=== PATIENT | female | born 1960 | race Caucasian/White ===

== ENCOUNTER 2017-07-12 00:23 | Emergency (ER) | payer OTHER ==
--- NOTE | 2017-07-12 01:40 | PDOC ---
History of Present Illness - General Stated Complaint: ANKLE PAIN Time Seen by Provider: 07/12/17 01:09 - History of Present Illness Initial Comments: 07/12/17 01:40 56 yo F with h/o seizure disorder and arthritis who presents with R ankle pain. Patient reports increased sharp lateral right ankle pain for the past month. Pain worse with ambulation. No sensory changes, or acute injuries/trauma. Pain worse in the morning and improves throughout the day. Also endorses BL knee, hand, and anterior howard pain and swelling. Denies N/V, F/C, CP, SOB, abdominal complaints, urinary complaints, rash, weakness, lightheadedness, LOC. Denies any acute trauma. Reports R ankle injury 1 year ago with sprained ankle. Denies OTC analgesia. Past History - Past Medical History Allergies/Adverse Reactions: Allergies Allergy/AdvReac Type Severity Reaction Status Date / Time No Known Allergies Allergy Verified 07/12/17 02:02 Home Medications: Ambulatory Orders Ibuprofen [Motrin] 600 mg PO TID #30 tablet 07/12/17 Review of Systems - Review of Systems Comments:: 07/12/17 01:40 GENERAL/CONSTITUTIONAL: No fever or chills. No weakness. HEAD, EYES, EARS, NOSE AND THROAT: No change in vision. No ear pain or discharge. No sore throat.- CARDIOVASCULAR: No chest pain or shortness of breath RESPIRATORY: No cough, wheezing, or hemoptysis. GASTROINTESTINAL: No nausea, vomiting, diarrhea or constipation. GENITOURINARY: No dysuria, frequency, or change in urination. MUSCULOSKELETAL: + Joint swelling and pain. No neck or back pain. SKIN: No rash NEUROLOGIC: No headache, vertigo, loss of consciousness, or change in strength/ sensation. ENDOCRINE: No increased thirst. No abnormal weight change HEMATOLOGIC/LYMPHATIC: No anemia, easy bleeding, or history of blood clots. ALLERGIC/IMMUNOLOGIC: No hives or skin allergy. *Physical Exam - Physical Exam Comments: 07/12/17 01:40 GENERAL: Awake, alert, and fully oriented, in no acute distress HEAD: No signs of trauma, normocephalic, atraumatic EYES: PERRLA, EOMI, sclera anicteric, conjunctiva clear ENT: Hearing grossly normal, nares patent, oropharynx clear without exudates. Moist mucosa NECK: Normal ROM, no JVD, or masses LUNGS: No distress, speaks full sentences, clear to auscultation bilaterally HEART: Regular rate and rhythm, normal S1 and S2, no murmurs, rubs or gallops, peripheral pulses normal and equal bilaterally. EXTREMITIES : Normal inspection, Normal range of motion, no edema. No clubbing or cyanosis. R ankle: Pain with palpation at posterior edge tip of R lateral malleolus. + swelling at R lateral malleolus. Normal active and passive ROM of foot. Negative forefoot ttp. SKIN: Warm, Dry, normal turgor, no rashes or lesions noted. Medical Decision Making - Medical Decision Making 07/12/17 01:49 56 yo F with h/o seizure disorder and arthritis who presents with increased sharp lateral right ankle pain for the past month. Aggravated with ambulation and worse worse in the morning with mild improvement/resolution throughout the day. No sensory changes, or acute injuries/trauma. Pain . + Arthralgias. Denies N/V, F/C, CP, SOB, abdominal complaints, urinary complaints, rash, weakness, lightheadedness, LOC. Denies any acute trauma. Reports R ankle injury 1 year ago with sprained ankle. Denies OTC analgesia.Physical exam reveals pain with palpation at posterior edge tip of R lateral malleolus. + swelling at R lateral malleolus. Normal active and passive ROM of foot. Negative forefoot ttp. Cannot r/o ankle frx. based on [place] ankle rules. Will obtain plain film of ankle. DDx:Arthritis, ankle sprain/strain, monserrat frx. ED Course: Right Ankle RAD Ibuprofen 600 mg 07/12/17 03:06 Right Ankle RAD: No acute evidence of fracture on preliminary read. Patient advised to f/u with orthopedics. Ibuprofen 600 mg sent to pharmacy. *DC/Admit/Observation/Transfer Diagnosis at time of Disposition: Ankle pain, chronic Qualifiers: Laterality: right Qualified Code(s): M25.571 - Pain in right ankle and joints of right foot - Discharge Dispostion Disposition: HOME Condition at time of disposition: Stable Admit: No - Prescriptions Prescriptions: Ibuprofen [Motrin] 600 mg PO TID #30 tablet - Referrals Referrals: Maynor Lott MD [Staff Physician] - - Patient Instructions Printed Discharge Instructions: DI for Ankle Pain Additional Instructions: Please return to the emergency department with any new or worsening symptoms or concerns. Please follow up with orthopedics within one week. - Post Discharge Activity - Attestations Physician Attestion: 07/12/17 03:05 I attest to the information provided in this note.
[2017-07-12] MEDS ORDERED: IBUPROFEN 600 MG TABLET (FP) PO ONE ×2 (01:41→02:04)
--- NOTE | 2017-07-12 01:54 | PDOC ---
Attending Attestation - HPI HPI: 07/12/17 01:56 The patient is a 56 year old female with a significant PMH of seizure disorder and arthritis who presents to the emergency department with right ankle pain. She notes associated swelling in her right ankle and reports the pain is worse with ambulation. She describes twisting her ankle about 1 year ago but no trauma since then. Allergies: NKA <Александр Glass - Last Filed: 07/12/17 01:56> - Resident Resident Name: Jeremías Kennedy - ED Attending Attestation I have performed the following: I have examined & evaluated the patient, The case was reviewed & discussed with the resident, I agree w/resident's findings & plan, Exceptions are as noted - Physicial Exam PE: 07/12/17 03:07 *Physical Exam General Appearance: Yes: Appropriately Dressed. No: Apparent Distress, Intoxicated HEENT: positive: EOMI, KANDIS, Normal ENT Inspection, Normal Voice, TMs Normal, Pharynx Normal. negative: Pale Conjunctivae, Photophobia, Scleral Icterus (R), Scleral Icterus (L) Neck: positive: Trachea midline, Normal Thyroid, Supple. negative: Tender, Rigid, Carotid bruit, Stridor, Lymphadenopathy (R), Lymphadenopathy (L), Thyromegaly Respiratory/Chest: positive: Lungs Clear, Normal Breath Sounds. negative: Chest Tender, Respiratory Distress, Accessory Muscle Use, Labored Respiration, RES, Crackles, Rales, Rhonchi, Stridor, Wheezing, Dullness Cardiovascular: positive: Regular Rhythm, Regular Rate, S1, S2. negative: Edema , JVD, Murmur, Bradycardia, Tachycardia Vascular Pulses: Dorsalis-Pedis (R): 2+, Doralis-Pedis (L): 2+ Gastrointestinal/Abdominal: positive: Normal Bowel Sounds, Flat, Soft. negative : Tender, Organomegaly, Pulsatile Mass, Increased Bowel Sounds, Decreased BS, Distended, Guarding, Rebound, Hernia, Hepatomegaly, Spleenomegaly Lymphatic: negative: Adenopathy, Tenderness Musculoskeletal: positive: tenderness to lateral malleolus right ankle, no francis deformity negative: CVA Tenderness, Decreased Range of Motion Extremity: positive: Normal Capillary Refill, Normal Inspection, Normal Range of Motion, Pelvis Stable. negative: Tender, Pedal Edema, Swelling, Erythema Integumentary: positive: Normal Color, Dry, Warm. negative: Cyanotic, Erythema , Jaundice, Rash Neurologic: positive: acid tank cleaner II-XII NML intact, Fully Oriented, Alert, Normal Mood/ Affect, Motor Strength 5/5. negative: EOM Palsy, Facial Droop, Sensory Deficit - Medical Decision Making 07/12/17 03:08 Pt treated and released <Johnathan Leonard - Last Filed: 07/12/17 03:08>
[2017-07-12 02:59] VITALS: BP 138/76; PULSE 82; TEMP 97.6; BMI 23.8
== END 2017-07-12 03:22 | disposition home or self-care (01) ==
LOC: JER 00:23
DX: M25.571 Pain in right ankle and joints of right foot (principal)
CPT/HCPCS: 73610-TC-RT; 99283-25